=== PATIENT | male | born 1990 | race African-American/Black ===

== ENCOUNTER 2020-03-06 12:13 | Emergency (ER) | payer SELFPAY ==
[~2020-03-06] VITALS: Ht 177.8 cm; Wt 90.9 kg
[2020-03-06] MEDS ORDERED: IV NORMAL SALINE 1000ML BAG 1,000 ML IV ONE (12:30)
--- NOTE | 2020-03-06 12:30 | PHYS DOC ---
Past Medical History Past Medical History: No Pertinent History Past Surgical History: No Surgical History Smoking Status: Current Every Day Smoker Alcohol Use: None Drug Use: None General Adult EDM: Chief Complaint: CHEST PAIN HPI: HPI: 29-year-old male presenting the emergency department today with chest pain and shortness of breath. He reports having nausea and vomiting over the past 24 hours without abdominal pain. Then he started having a sharp pain in his chest that is nonradiating moderate in nature and without alleviating factors. He called EMS who brings him in. They report he had a normal blood sugar with a normal EKG. Patient denies having diabetes high blood pressure high cholesterol. He does smoke. He is unsure of family history because he was fostered. He denies unilateral leg swelling hemoptysis history of DVT or PE or recent surgery or immobilization. Review of systems negative for abdominal pain. Positive for vomiting. Negative for diaphoresis or fevers. He denies headache or neck stiffness. All other review of systems negative. ED course: 29-year-old male presents emergency department today with chest pain. EKG obtained and reviewed by myself shows sinus rhythm with a regular rate. He has some repolarization abnormalities in lead V2 and V3 and V4 that are nonspecific. Does not meet STEMI criteria. repeat ekg shows no acute evolving changes. Chest x-ray and blood work ordered. IV fluids ordered. Chest x-ray unremarkable. Blood work unremarkable. pt is feeling much better on reexamination. The patient has been examined and was not found to have an emergency medical condition. The patient was then discharged home in stable condition to follow up with their primary care physician over the next 1-2 days. They were to return if their symptoms worsened or if they were concerned for any reason. They were also instructed to return to the emergency department if they were unable to get the recommended and appropriate follow-up. [id number] discharge instructions and return precautions were given. Patient's questions were answered to their satisfaction. Patient is comfortable with plan. Heart Score: HEART Score for Chest Pain: HEART Score for Chest Pain Response (Comments) Value History Slighlty/Non-Suspicious 0 ECG Nonspecific Repolarizatio 1 Age < 45 0 Risk Factors No Risk Factors 0 Troponin < Normal Limit 0 Total 1 Risk Factors: Risk Factors: DM, Current or recent (<one month) smoker, HTN, HLP, family history of CAD, obesity. Risk Scores: Score 0 - 3: 2.5% MACE over next 6 weeks - Discharge Home Score 4 - 6: 20.3% MACE over next 6 weeks - Admit for Clinical Observation Score 7 - 10: 72.7% MACE over next 6 weeks - Early Invasive Strategies Physical Exam: PE: Constitutional: Well developed, well nourished, no acute distress, non-toxic appearance. [] HENT: Normocephalic, atraumatic, bilateral external ears normal, oropharynx moist, no oral exudates, nose normal. [] Eyes: PERRLA, EOMI, conjunctiva normal, no discharge. [] Neck: Normal range of motion, no tenderness, supple, no stridor. [] Cardiovascular:Heart rate regular rhythm, no murmur [] Lungs & Thorax: Bilateral breath sounds clear to auscultation [] Abdomen: Bowel sounds normal, soft, no tenderness, no masses, no pulsatile masses. [] Skin: Warm, dry, no erythema, no rash. [] Back: No tenderness, no CVA tenderness. [] Extremities: No tenderness, no cyanosis, no clubbing, ROM intact, no edema. [] Neurologic: Alert and oriented X 3, normal motor function, normal sensory function, no focal deficits noted. [] Psychologic: Affect normal, judgement normal, mood normal. [] EKG: EKG: [] Radiology/Procedures: Radiology/Procedures: [] Course & Med Decision Making: Course & Med Decision Making Pertinent Labs and Imaging studies reviewed. (See chart for details) [] Dragon Disclaimer: Dragon Disclaimer: This electronic medical record was generated, in whole or in part, using a voice recognition dictation system. Departure Departure Impression: Primary Impression: Chest pain Disposition: 01 HOME, SELF-CARE Condition: STABLE Patient Instructions: Chest Pain (Nonspecific) Justicifation of Admission Dx: Justifications for Admission: Justification of Admission Dx: No JEAN CARLOS OLIVERA MD Mar 06, 2020 12:30
[2020-03-06 12:44] LABS: BASO % 0 % (0-3); EOS % 0 % (0-3); HEMATOCRIT 49.8 % (39.0-53.0); HEMOGLOBIN 16.8 g/dL (13.0-17.5); LYMPH # 1.6 x10^3/uL (1.0-4.8); LYMPH % 16 % (24-48); MEAN CORPUSCULAR HEMOGLOBIN 30 pg (25-35); MEAN CORPUSCULAR HGB CONC 34 g/dL (31-37); MEAN CORPUSCULAR VOLUME 89 fL (79-100); MONO # 0.6 x10^3/uL (0.0-1.1); MONO % 6 % (0-9); NEUT # 7.6 x10^3/uL (1.8-7.7); NEUT % 77 % (31-73); PLATELET COUNT 202 x10^3/uL (140-400); RED BLOOD COUNT 5.58 x10^6/uL (4.30-5.70); RED CELL DISTRIBUTION WIDTH 14.1 % (11.5-14.5); WHITE BLOOD COUNT 9.8 x10^3/uL (4.0-11.0)
--- NOTE | 2020-03-06 13:10 | RAD ---
CHEST AP ONLY History: Reason: chest pain / Spl. Instructions: / History: Comparison: None. Findings: No consolidation or pleural effusion. Normal heart size. No pneumothorax. Irregularity of the right inferior glenoid, may relate to prior trauma. Impression: 1. No acute cardiopulmonary process. Electronically signed by: Gregory Cervantes DO (03/06/2020 1:07 PM) [id number]
[2020-03-06 14:06] LABS: PARTIAL THROMBOPLASTIN TIME 29 SEC (24-38)
[2020-03-06 14:07] LABS: CALCIUM 8.1 mg/dL (8.5-10.1); GFR 108.5; POTASSIUM 3.9 mmol/L (3.5-5.1)
[2020-03-06 14:15] LABS: ALBUMIN 3.8 g/dL (3.4-5.0); DIRECT BILIRUBIN 0.3 mg/dL (0.0-0.2); MAGNESIUM 1.8 mg/dL (1.8-2.4); TOTAL BILIRUBIN 0.8 mg/dL (0.2-1.0); TOTAL PROTEIN 6.9 g/dL (6.4-8.2)
[2020-03-06 14:18] LABS: PROTHROMBIN TIME PATIENT 15.9 SEC (11.7-14.0)
[2020-03-06 14:41] LABS: D-DIMER < 0.27 ug/mlFEU (0.00-0.50)
[2020-03-06 15:30] VITALS: BP 143/75
--- NOTE | 2020-03-07 04:26 | EKG ---
[facility] [address] [place] [address] Test Date: 2020-03-06 Test Time: 15:06:25 Pat Name: GEO HURLEY Department: Room: Gender: M City Distribution Clerk: : 1990 Requested By: JEAN CARLOS OLIVERA Order Number: [id number] Reading MD: Measurements Intervals [place] Rate: 63 P: 41 [place]: 154 QRS: 49 QRSD: 94 T: 41 QT: 388 QTc: 400 Interpretive Statements SINUS RHYTHM NORMAL ECG RI6.02 No previous ECG available for comparison
--- NOTE | 2020-03-07 04:34 | EKG ---
[facility] [address] [place] [address] Test Date: 2020-03-06 Test Time: 12:18:41 Pat Name: GEO HURLEY Department: Room: Gender: M Drier: : 1990 Requested By: JEAN CARLOS OLIVERA Order Number: [id number] Reading MD: Measurements Intervals [place] Rate: 62 P: 77 MT: 166 QRS: 62 QRSD: 96 T: 49 QT: 398 QTc: 406 Interpretive Statements SINUS RHYTHM LEFT ATRIAL ABNORMALITY T ABNORMALITY IN ANTEROSEPTAL LEADS ABNORMAL ECG RI6.02 No previous ECG available for comparison
== END 2020-03-06 15:35 | disposition home or self-care (01) ==
LOC: ER 12:13
DX: R07.89 Other chest pain (principal); R06.02 Shortness of breath; R11.2 Nausea with vomiting, unspecified; F17.200 Nicotine dependence, unspecified, uncomplicated
CPT/HCPCS: 36415; 71045; 80048; 80076; 83690; 83735; 83880; 84484; 85025; 85379; 85610; 85730; 93005; 99285; J7030